=== PATIENT | female | born 1950 | race Caucasian/White ===

== ENCOUNTER 2019-06-18 07:25 | Day surgery (SDC) | payer OTHER ==
[2019-06-18] MEDS ORDERED: LIDOCAINE HCL 1% PF 300MG/30ML VIAL ONE (08:48)
[2019-06-18] MEDS ORDERED: LIDOCAINE HCL 2% PF 100MG/5ML VIAL IJ ONE (08:48)
[2019-06-18] MEDS ORDERED: MIDAZOLAM HCL 2 MG/2 ML VIAL ONE (08:48)
[2019-06-18] MEDS ORDERED: fentaNYL CITRATE/PF 100 MCG/2 ML INJ. ONE (08:48)
[2019-06-18] MEDS ORDERED: 0.9 % SODIUM CHLORIDE PF 10 ML VIAL IJ ONE (08:48)
[2019-06-18] MEDS ORDERED: LACTATED RINGERS 1,000 ML IV.SOLN IV ONE (08:48)
[2019-06-18] MEDS ORDERED: traMADol HCL 50 MG TABLET ONE (08:48)
[2019-06-18] MEDS ORDERED: PROPOFOL 200 MG/20 ML VIAL IV ONE (08:48)
--- NOTE | 2019-06-21 06:31 | Operative Note ---
PROCEDURE DATE: 06/18/2019 PREOPERATIVE DIAGNOSIS: 1. Lumbosacral radiculopathy. 2. Lumbar degenerative disc disease, lumbar spondylosis. POSTOPERATIVE DIAGNOSIS: 1. Lumbosacral radiculopathy. 2. Lumbar degenerative disc disease, lumbar spondylosis. PROCEDURE(S) PERFORMED: 1. Percutaneous insertion of spinal cord stimulator lead x2 under fluoroscopic guidance; CPT Code #72935 x2. 2. Complex analysis and programming of spinal cord stimulator leads; CPT Code #52614. SURGEON: Iglesia De Dios M.D. ANESTHESIA: Local. COMPLICATIONS: None. INDICATION FOR PROCEDURE: The patient is a very pleasant 68-year-old with extensive lumbar degenerative disc disease and spinal stenosis. She presents today having failed conservative therapy for low back and lower extremity pain, for spinal cord stimulation. Preoperative laboratory data were checked with CBC and partial thromboplastin time. The patients laboratory data was normal with no evidence of any coagulopathy. DESCRIPTION OF PROCEDURE: The patient was taken to the operative suite at [facility] and placed in the prone position. Intravenous sedation was given with monitored anesthesia care. Sterile prep and drape of the low back was performed using Betadine prep. Under fluoroscopic guidance the L2-3 interspace was identified. Using a paramedian approach after proper anesthetization of the skin a 14 gauge epidural needle was placed in the epidural space. Under live lateral fluoroscopic guidance the epidural space was entered using the loss of resistance technique with saline. There was no evidence of any blood, CSF, paresthesias following which time an 8-contact spinal cord stimulator lead was placed in the posterior portion of the epidural space and threaded upward until it covered the T8-T9 interspace in the posterior portion of the epidural space. A second lead was placed to the L2-3 interspace with a 14 gauge epidural needle in juxtaposition to the first using the same technique. A second 8-contact spinal cord stimulator electrode was placed in the posterior portion of the epidural space and tunneled upward until the lead covered the T8-T9 interspace in juxtaposition to the first under live lateral projection in the posterior portion of the epidural space. Complex programming was then done intraoperatively and the patient was alert and under sedation was able to confirm stimulation in the area of the patients pain complaint, which was in the low back and lower extremities following which time the epidural needles were removed from the epidural space. The stylets were removed from the leads, and the leads were secured to the back using a StayFIX and string loop. The patient was then taken to the recovery room alert and oriented, moving all extremities. Further programming was done with the assistance of the unit support representative from [facility]. The company unit support representative assisted with programming in the recovery area. The patient was alert and oriented, moving all extremities and was discharged to follow up in approximately 1 week. She was given a prescription for Levaquin 750 mg to take 1 tablet p.o. daily and tramadol/acetaminophen 37.5 mg 1 tab p.o. daily. X IGLESIA DE DIOS M.D. DATE SIGNED TIME SIGNED (Please copy [facility] provider when applicable) Summer JOB#: [id number] MTDD
== END 2019-06-18 11:40 | disposition home or self-care (01) ==
LOC: OPSURG 07:25
PROVIDERS: ATTEND Anesthesiology Pain Medicine
DX: M51.16 Intervertebral disc disorders with radiculopathy, lumbar region (principal); M47.26 Other spondylosis with radiculopathy, lumbar region; M54.5 Low back pain
CPT/HCPCS: 63650; J2001; J2250; J2704; J3010; J7120